=== PATIENT | female | born 1970 | race Caucasian/White ===

== ENCOUNTER 2017-02-26 12:39 | Emergency (ER) | payer BC ==
--- NOTE | 2017-02-26 14:11 | UC ---
Elbow Pain - HPI Summary HPI Summary: 46 Y/O female presents with complaint of R elbow pain that has been increasing over the last several weeks. Denies falls or injury. States does have a history of "tennis elbow". Concerned due to increased pain. Requesting x -ray. has had low grade fever over last several weeks (afebrile at this visit) but has had blood work and will be following up with her primary care physician this week to go over the results. Blood pressure mildly elevated without history of HTN, most likely due to current compliant of pain. Current medications and medical history have been reviewed at this visit. - History of Current Complaint Hx Obtained From: Patient Hx Last Menstrual Period: 02/13/17 Onset/Duration: Weeks Severity Initially: Mild Severity Currently: Moderate Pain Intensity: 9 Pain Scale Used: 0-10 Numeric Location Of Pain: Is Discrete @ - Elbow, Radiates To - Forearm Character: Sharp, Throbbing Aggravating Factor(s): Movement, Other - Increased with gripping Alleviating Factor(s): Rest Associated Signs And Symptoms: Positive: Negative <Ruth Philippe - Last Filed: 02/26/17 14:05> <Vivian Arredondo - Last Filed: 02/27/17 18:37> - History of Current Complaint Chief Complaint: UCUpperExtremity Stated Complaint: ELBOW PAIN Time Seen by Provider: 02/26/17 13:41 - Allergies/Home Medications Allergies/Adverse Reactions: Allergies Allergy/AdvReac Type Severity Reaction Status Date / Time Gluten Meal Allergy Severe HAS Verified 02/26/17 13:19 CELIAC'S DISEASE PMH/Surg Hx/FS Hx/Imm Hx Previously Healthy: Yes - Surgical History Surgical History: Yes Surgery Procedure, Year, and Place: ACL RIGHT KNEE, 1995, Dr. Benites. LEFT KNEE MENICUS 2011 - Social History Alcohol Use: Weekly Alcohol Amount: 1-2 Substance Use Type: None Smoking Status (MU): Never Smoked Tobacco Have You Smoked in the Last Year: No <Ruth Philippe - Last Filed: 02/26/17 14:05> Review of Systems Constitutional: Fever - has had low grade fever on and off for one month Skin: Negative Eyes: Negative ENT: Negative Respiratory: Negative Cardiovascular: Negative Gastrointestinal: Negative Genitourinary: Negative Motor: Negative Neurovascular: Negative Musculoskeletal: Negative Neurological: Negative Psychological: Negative Is Patient Immunocompromised?: No All Other Systems Reviewed And Are Negative: Yes <Ruth Philippe - Last Filed: 02/26/17 14:05> Physical Exam Triage Information Reviewed: Yes Appearance: Well-Appearing Vital Signs: Initial Vital Signs Temp 97.6 F 02/26/17 13:21 Pulse 84 02/26/17 13:21 Resp 17 02/26/17 13:21 BP 135/67 02/26/17 13:21 Pulse Ox 99 02/26/17 13:21 Vital Signs Reviewed: Yes Eye Exam: Normal Eyes: Positive: Conjunctiva Clear Neck exam: Normal Neck: Positive: Nontender, No Lymphadenopathy Respiratory Exam: Normal Respiratory: Positive: Lungs clear, Normal breath sounds Cardiovascular Exam: Normal Cardiovascular: Positive: RRR Abdominal Exam: Normal Abdomen Description: Positive: Nontender Bowel Sounds: Positive: Present Musculoskeletal Exam: Other Musculoskeletal: Positive: Other: - Pain with palpation, increased pain with lifting and gripping Neurological Exam: Normal Neurological: Positive: Alert Psychological Exam: Normal Skin Exam: Normal <Ruth Philippe - Last Filed: 02/26/17 14:05> Vital Signs: Initial Vital Signs Temp 97.6 F 02/26/17 13:21 Pulse 84 02/26/17 13:21 Resp 17 02/26/17 13:21 BP 135/67 02/26/17 13:21 Pulse Ox 99 02/26/17 13:21 <Vivian Arredondo - Last Filed: 02/27/17 18:37> Elbow Pain Course/Dx - Differential Dx/Diagnosis Differential Diagnosis/HQI/PQRI: Sprain, Strain, Tendonitis Provider Diagnoses: Lateral epicondylitis <Ruth Philippe - Last Filed: 02/26/17 14:05> Discharge <Ruth Philippe - Last Filed: 02/26/17 14:05> <Vivian Arredondo - Last Filed: 02/27/17 18:37> - Discharge Plan Condition: Stable Disposition: HOME Patient Education Materials: Tennis Elbow (ED) Referrals: Ja Corrales DO [Primary Care Provider] - Jignesh Benites MD [Medical Doctor] - Additional Instructions: Your Xray was negative for fractures or other acute injury. Please follow up with Dr Benites for continued pain. You may take ibuprofen as directed for pain. Use ice pack as tolerated. Attestation Statement User Type: Provider - I was available for consult. This patient was seen by the AGUSTIN. The patient was not presented to, seen by, or examined by me. -Robin <Vivian Arredondo - Last Filed: 02/27/17 18:37>
--- NOTE | 2017-02-26 14:38 | RAD ---
HISTORY: Right elbow pain COMPARISONS: None VIEWS: 4, Frontal, lateral, and oblique views of the right elbow FINDINGS: BONE DENSITY: Normal. BONES: There is no displaced fracture. There are enthesophytes of the olecranon and the medial and lateral humeral epicondyles JOINTS: There is no arthropathy. ALIGNMENT: There is no dislocation. SOFT TISSUES: Unremarkable. OTHER FINDINGS: None. IMPRESSION: MILD DEGENERATIVE CHANGES. NO ACUTE OSSEOUS INJURY. IF SYMPTOMS PERSIST, RECOMMEND REPEAT IMAGING.
[2017-02-26 14:59] VITALS: BP 138/70
== END 2017-02-26 15:03 | disposition home or self-care (01) ==
LOC: UCEAST 12:39
DX: M77.11 Lateral epicondylitis, right elbow (principal)
CPT/HCPCS: 99213; G0463